=== PATIENT | female | born 1945 | race Caucasian/White ===

== ENCOUNTER 2017-08-31 16:07 | Emergency (ER) | payer OTHER ==
[2017-08-31 16:23] VITALS: BP 161/61
--- NOTE | 2017-08-31 16:26 | ED Physician Documentation ---
General Adult - HISTORIAN Historian: patient - HPI Stated Complaint: R knee pain Chief Complaint: General Adult Onset: other (3 weeks) Timing: still present Severity: moderate Further Comments: yes (Pt isd a 72 yo female with pain behind her R knee that has been worsening over the past 3 weeks.) - ROS CONST: no problems EYES/ENT: none CVS/RESP: none GI/: none MS/SKIN/LYMPH: other (pain behind R knee) - PAST HX Past History: none Allergies/Adverse Reactions: Allergies Allergy/AdvReac Type Severity Reaction Status Date / Time ampicillin Allergy Verified 08/31/17 16:24 cephalexin monohydrate Allergy Verified 08/31/17 16:24 [From Keflex] Penicillins Allergy Verified 08/31/17 16:24 tape Allergy Uncoded 08/31/17 16:24 Home Medications: Ambulatory Orders Medication Instructions Recorded NK [NK] 08/31/17 - SOCIAL HX Smoking History: non-smoker - FAMILY HX Family History: No - VITAL SIGNS Vital Signs: Vital Signs Temp Pulse Resp BP Pulse Ox 96.3 F L 70 16 161/61 95 08/31/17 16:10 08/31/17 16:10 08/31/17 16:10 08/31/17 16:10 08/31/17 16:10 - REVIEWED ASSESSMENTS Nursing Assessment Reviewed: Yes Vitals Reviewed: Yes Progress - Progress Progress: D dimer wnl f/u pcp for possible [place]'s Cyst General Adult Physical Exam - PHYSICAL EXAM GENERAL APPEARANCE: mild distress NECK: normal inspection, supple RESPIRATORY: no resp distress, chest non-tender, breath sounds normal CVS: reg rate & rhythm, heart sounds normal BACK: normal inspection, no CVA tenderness SKIN: warm/dry, normal color EXTREMITIES: normal range of motion, no evidence of injury, tenderness (R popliteal fossa) NEURO: oriented X3, motor nml, sensation nml Discharge Clincal Impression: R popliteal tenderness Referrals: Sangeetha Gomez MD [Primary Care Provider] - Condition: Good Disposition: 01 HOME, SELF-CARE Decision to Admit: NO Decision Time: 17:27
== END 2017-08-31 17:20 | disposition home or self-care (01) ==
LOC: ED 16:07
DX: M25.561 Pain in right knee (principal)
CPT/HCPCS: 85379; 85610; 85730; 99283